=== PATIENT | male | born 1980 | race Two or more races ===

== ENCOUNTER 2025-08-11 11:05 | Emergency (ER) | payer MEDICAID, SELFPAY ==
[2025-08-11 11:05] VITALS: BMI 25.2
[2025-08-11 11:28] VITALS: BP 138/91; PULSE 75; RESP 18; TEMP 37.1; O2SAT 98
--- NOTE | 2025-08-11 11:36 | EKG_ITS ---
[facility] Test Date: 2025-08-11 Pat Name: RICHARD MICHEL Department: Room: - Gender: Male Loan Coordinator: : 1980 Requested By: Stevie Zuluaga Order Number: [id number] Reading MD: Stevie Zuluaga Measurements Intervals [place] Rate: 64 P: 56 ND: 173 QRS: 70 QRSD: 106 T: 67 QT: 368 QTc: 380 Interpretive Statements SINUS RHYTHM Compared to ECG 10/02/2018 09:31:22 Intraventricular conduction delay no longer present /store/S0/[id number].pdf
--- NOTE | 2025-08-11 11:36 | XR_ITS ---
EXAMINATION: PA lateral chest 2 views TECHNIQUE: Upright PA lateral chest 2 views Date and time: August 11, 2025, 1137 hours INDICATIONS: Chest pain beginning 2 days ago. FINDINGS: Normal heart size Lungs are clear Moderate thoracic spondylosis IMPRESSION: No active disease
--- NOTE | 2025-08-11 11:36 | PD.EDRME ---
Rapid Medical Screening Exam E Arrival date/time: 08/11/25 11:05 44-year-old male with a history of hyperlipidemia, hypertension, type 2 diabetes presents to the emergency room with a chief complaint of shortness of breath, fatigue, weakness, and a near syncopal episode x 1 week I have greeted and performed a focused initial assessment of this patient. A comprehensive ED assessment and evaluation of the patient, analysis of all test results, and completion of the medical decision making process will be conducted by additional ED providers. Chief Complaint: Shortness of Breath/Dyspnea Time Seen by Provider: 08/11/25 11:08 Vital signs: Vital Signs Temperature 98.8 F 08/11/25 11:28 Pulse Rate 75 08/11/25 11:28 Respiratory Rate 18 08/11/25 11:28 Blood Pressure 138/91 H 08/11/25 11:28 Pulse Oximetry (%) 98 08/11/25 11:28 Oxygen Delivery Method Room Air 08/11/25 11:28 Vital signs reviewed by provider: Yes Exam: Strong regular rhythm S1 and S2 noted Clear bilateral lung sounds no wheezing or any abnormal breath sounds GCS of 15 alert and oriented x 3 Clinical Impression: Pneumonia/electrolyte imbalance/anemia
[2025-08-11 12:16] LABS: Basophils # (Auto) 0.1 Thou/mm3 (0.0-0.2); Basophils % (Auto) 1 % (0-2.5); Eosinophils # (Auto) 0.0 Thou/mm3 (0.0-0.5); Eosinophils % (Auto) 1 % (0-10); Hematocrit 42.0 % (41.0-53.0); Hemoglobin 14.9 g/dL (13.5-16.0); Immature Granulocytes Auto 0.03 Thou/mm3 (0.00-0.00); Lymphocytes # (Auto) 1.8 Thou/mm3 (1.0-4.8); Lymphocytes % (Auto) 21 % (10-50); Mean Corpuscular HGB Conc 35.5 g/dl (31.0-37.0); Mean Corpuscular Hemoglobin 32.7 pg (25.0-35.0); Mean Corpuscular Volume 92 fL (80-100); Monocytes # (Auto) 0.9 Thou/mm3 (0.0-0.8); Monocytes % (Auto) 11 % (0-12); Neutrophils # (Auto) 5.6 Thou/mm3 (1.8-7.7); Neutrophils % (Auto) 66 % (37-80); Nucleated Red Blood Cell # 0.00 Thou/mm3 (0.00-0.00); Nucleated Red Blood Cell % 0 /100 WBC (0); Platelet Count 213 Thou/mm3 (140-440); RDW Standard Deviation 42.3 fL (35.1-43.9); Red Blood Count 4.56 Miln/mm3 (4.50-5.90); White Blood Count 8.4 Thou/mm3 (3.8-10.6)
[2025-08-11 12:40] LABS: B-Type Natriuretic Peptide < 20 pg/mL (0-100)
[2025-08-11 12:44] LABS: Alanine Aminotransferase 10 U/L (10-49); Albumin, Serum 4.7 gm/dL (3.5-5.0); Albumin/Globulin Ratio 2.4 (1.2-2.2); Alkaline Phosphatase 92 U/L (46-116); Anion Gap 8 (7-16); Aspartate Amino Transferase 19 U/L (0-34); BUN/Creatinine Ratio 9 Ratio (12-20); Bilirubin,Total 0.5 mg/dL (0.3-1.2); Blood Urea Nitrogen 8 mg/dL (9-23); Calcium 9.1 mg/dL (8.3-10.6); Calcium (Corrected) 9.1 mg/dL (8.5-10.1); Carbon Dioxide 24.7 mMol/L (20.0-31.0); Chloride 110 mMol/L (98-107); Creatinine (Component) 0.9 mg/dL (0.6-1.3); Estimated Creatinine Clearance 118.4 mL/min (>60); Globulin 2.0 gm/dL (2.3-3.5); Glucose 104 mg/dL (74-106); Magnesium 2.1 mg/dL (1.6-2.6); Osmolality,Calculated 283 (275-295); Potassium 3.4 mMol/L (3.4-5.1); Sodium 143 mMol/L (136-145); Total Protein 6.7 gm/dL (5.7-8.2); Troponin I < 0.002 ng/mL (0.0-0.045); eGFR > 60 See Note
[2025-08-11 12:46] LABS: INR 1.1 (0.9-1.3); Partial Thromboplastin Time 27.6 Seconds (22.0-36.0); Prothrombin Time 11.2 Seconds (9.0-12.2)
[2025-08-11 13:00] LABS: Collection Type, Urine Clean Catch
[2025-08-11 13:16] LABS: Bilirubin,Urine Negative (Negative); Blood,Urine Negative (Negative); Clarity,Urine Clear (Clear/Hazy); Color,Urine Lt-Yellow (Lt Yel-Yel); Culture Indicated,Urine Not Indicated; Glucose, Urine Negative (Negative); Ketones,Urine Negative (Negative); Leukocyte Esterase,Urine Negative (Negative); Nitrite,Urine Negative (Negative); PH,Urine 6.5 (5.0-7.0); Protein,Urine Negative (Neg - Trace); RBC,Urine 4 /hpf (0-3); Specific Gravity,Urine 1.020 (1.001-1.035); Squamous Epithelial Cell,Urine < 1 /hpf (0-5); Urobilinogen,Urine Negative mg/dL (0.0-1.0); WBC,Urine 1 /hpf (0-5)
[2025-08-11 13:33] LABS: Amphetamine/Methamp Scrn,U Negative (Negative); Barbiturate Screen,Urine Negative (Negative); Benzodiazepines Screen,Urine Negative (Negative); Benzoylecgonine Screen, Ur Negative (Negative); Fentanyl Screen,Urine Negative (Negative); Opiate Screen,Urine Negative (Negative); THC Screen,Urine Positive (Negative)
--- NOTE | 2025-08-11 13:51 | PD.EDSOB ---
ED SOB =RME/HPI General Chief Complaint: Shortness of Breath/Dyspnea Stated Complaint: SOB & TIREDNESS X1 MONTH Time Seen by Provider: 08/11/25 11:08 Arrival date/time: 08/11/25 11:05 RME / HPI RME / HPI Narrative: 08/11/25 11:05 44-year-old male with a history of hyperlipidemia, hypertension, type 2 diabetes presents to the emergency room with a chief complaint of shortness of breath, fatigue, weakness, and a near syncopal episode x 1 week I have greeted and performed a focused initial assessment of this patient. A comprehensive ED assessment and evaluation of the patient, analysis of all test results, and completion of the medical decision making process will be conducted by additional ED providers. Exam: Strong regular rhythm S1 and S2 noted Clear bilateral lung sounds no wheezing or any abnormal breath sounds GCS of 15 alert and oriented x 3 Impression: Pneumonia/electrolyte imbalance/anemia Related Data Home Medications ?Medication ?Instructions ?Recorded ?Confirmed paroxetine HCl 40 mg tablet (Paxil) 40 mg PO QDAY 09/01/18 10/02/18 atorvastatin 40 mg tablet 40 mg PO QPM 10/02/18 10/02/18 gemfibrozil 600 mg tablet (Lopid) 600 mg PO BID 10/02/18 10/02/18 lurasidone 120 mg tablet (Latuda) 120 mg PO QDAY 10/02/18 10/02/18 metformin 500 mg tablet 500 mg PO QDAY 12/31/18 Previous Rx's ?Medication ?Instructions ?Recorded cyclobenzaprine 10 mg tablet 10 mg PO TID #20 tabs 03/28/18 meloxicam 7.5 mg tablet (Mobic) 7.5 mg PO QDAY #20 tabs 03/28/18 ibuprofen 800 mg tablet 800 mg PO TID PRN pain #30 tabs 01/06/22 Allergies Allergy/AdvReac Type Severity Reaction Status Date / Time NKA* Allergy Uncoded 08/11/25 11:07 Course Quality Measures none Orders Category Date Time Status EKG (ED ONLY) *Do not use* NOW Care 08/11/25 11:36 Completed EKG (ED Only) Stat Exams 08/11/25 11:36 Draft XR chest 2V Stat Exams 08/11/25 11:36 Completed B-Type Natriuretic Peptide Stat Lab 08/11/25 11:55 Completed CBC Stat Lab 08/11/25 11:55 Completed Comprehensive Metabolic Panel Stat Lab 08/11/25 11:55 Completed Drug Screen,Urine Stat Lab 08/11/25 12:46 Completed Magnesium Stat Lab 08/11/25 11:55 Completed Partial Thromboplastin Time Stat Lab 08/11/25 11:55 Completed Prothrombin Time with INR Stat Lab 08/11/25 11:55 Completed Troponin I Stat Lab 08/11/25 11:55 Completed Urinalysis, C/S if Indicated Stat Lab 08/11/25 12:46 Completed Vital Signs Vital signs: Vital Signs Temperature 98.8 F 08/11/25 11:28 Pulse Rate 75 08/11/25 11:28 Respiratory Rate 18 08/11/25 11:28 Blood Pressure 138/91 H 08/11/25 11:28 Pulse Oximetry (%) 98 08/11/25 11:28 Oxygen Delivery Method Room Air 08/11/25 11:28 Shortness of Breath / Dyspnea Patient data External records reviewed:: [facility] previous records Clinical information provided by:: patient Social determinants that could affect healthcare access:: none Patient has the following chronic illnesses:: Hypertension diabetes How is presenting disease/condition affected by chronic disease/condition?: exacerbated by Evaluation data The following diagnostics were reviewed and interpreted by me:: lab results and radiology exam(s) Lab and/or radiology exams considered but not ordered:: None Interpretation Summary: No elevations, no depressions. Medications / Prescriptions Medications or Prescriptions considered but not ordered:: None Medication administrations:: None Consultations Consultation(s) initiated? (list below): No Diagnosis Shortness of Breath Differential Diagnosis: congestive heart failure, community acquired pneumonia and other (Arrhythmias.) Most likely diagnosis given after review of the tests above:: Palpitations chronic dyspnea Admission Indicated Admission indicated?: not indicated Admission Request Was there a request for admission?: No Disposition Plan Disposition Plan: Discharge Discharge Attestation Discharge Attestation: The patient and all family members were given an opportunity to ask questions and understood the discharge instructions. Discharge instructions specifically effects, indications for sooner follow up or return to the emergency department, and the expected course of current diagnosis. Patient condition: Stable Discharge Plan Plan Patient Disposition: HOME (Self Care) Patient condition on transfer: Stable Prescriptions/Referrals Prescriptions/Med Rec: No Action cyclobenzaprine 10 mg tablet 10 mg PO TID Qty: 20 0RF meloxicam [Mobic] 7.5 mg tablet 7.5 mg PO QDAY Qty: 20 0RF metformin 500 mg tablet 500 mg PO QDAY ibuprofen 800 mg tablet 800 mg PO TID PRN (Reason: pain) Qty: 30 0RF paroxetine HCl [Paxil] 40 mg Tablet 40 mg PO QDAY atorvastatin 40 mg Tablet 40 mg PO QPM gemfibrozil [Lopid] 600 mg Tablet 600 mg PO BID lurasidone [Latuda] 120 mg Tablet 120 mg PO QDAY Referrals: No Primary/Family,Physician [Primary Care Provider] - In 1 week Problem List Clinical Impression: Insomnia, Chronic dyspnea Patient/Caregiver Discharge Instructions Education Materials: ED Shortness of Breath (Dyspnea), ED Insomnia Additional Instructions: Today your labs and EKG and chest x-ray are reassuring. I am sorry that you are having trouble sleep. You can increase your trazodone at night to include 1 tablet at night instead of a half a tablet. Please talk to your psychiatrist and/or your doctor giving you your other medications to see if there is anything else like they want to change. Return to emergency department for any worsening symptoms, or any other concerns. Print Language: Amharic Stand Alone Forms: [facility] Award Info., Patient Portal Info Letter
--- NOTE | 2025-09-18 21:03 | PD.EDADDENDU ---
Emergency Room Addendum Addendum Narrative: Physical Examination does not look ill/toxic. Patient has good eye contact. Patient is cooperative. HEENT: Normocephalic, atraumatic. Pupils are equal and reactive. Oral mucosa is moist. Patent Nares NECK: Supple, nontender, no thyromegaly, no meningismus, CHEST: Symmetrical, , and with equal expansion , Nontender on palpation no deformity and no crepitus. CARDIOVASCULAR: Heart regular rhythm no murmur or gallop rub or extra beats. LUNGS: Clear to auscultation bilaterally with symmetrical chest rise. No laboring tachypnea or wheezing. No rales and no rhonchi. ABDOMEN: Soft, flat, nontender to palpation, no guarding or rebound tenderness. There are no abnormal masses palpated. Active and normal bowel sounds. EXTREMITIES: Nontender. No edema. No cyanosis. Patient is able to move all 4 extremities well, with full ROM and good CSM. SKIN: Warm and dry, no jaundice or rashes noted. MUSCULOSKELETAL: No lumbar or midline bony tenderness. There is no CVA tenderness. No paraspinal muscle spasm or tenderness. NEURO: Patient is AGUILAR x 4, Cranial nerves II through XII grossly intact. t.
== END 2025-08-11 13:58 | disposition home or self-care (01) ==
PROVIDERS: Nurse Practitioner Family; Emergency Provider Emergency Medicine
DX: G47.00 Insomnia, unspecified (principal); R06.00 Dyspnea, unspecified; E11.9 Type 2 diabetes mellitus without complications; E78.5 Hyperlipidemia, unspecified; I10 Essential (primary) hypertension
CPT/HCPCS: 36415; 71046; 80053; 80307; 81001; 83735; 83880; 84484; 85025; 85610; 85730; 93005; 99282